=== PATIENT | male | born 1990 | race Caucasian/White ===

== ENCOUNTER 2019-04-04 22:42 | Emergency (ER) | payer OTHER ==
[~2019-04-04] VITALS: Ht 182.9 cm; Wt 93.0 kg
[~2019-04-04 22:42] MED LIST: HUMALOG100 UNIT/2
[2019-04-04 23:20] LABS: ABSOLUTE EOSINOPHILS 0.1 thou/uL (0.0-0.7); ABSOLUTE LYMPHOCYTES 2.1 thou/uL (0.8-5.3); ABSOLUTE MONOCYTES 0.7 thou/uL (0.0-1.2); ABSOLUTE NEUTROPHILS 5.8 thou/uL (1.6-8.1); BASOPHILS 0.4 %; HEMATOCRIT 44.1 % (42.0-52.0); HEMOGLOBIN 14.9 gm/dL (14.0-18.0); LYMPHOCYTES 23.9 %; MCH 30.8 pg (26.0-34.0); MCHC 33.7 g/dL (28.0-37.0); MCV 91.3 fL (80.0-100.0); MONOCYTES 8.3 %; MPV 8.3 fl. (7.2-11.1); NUCLEATED RBCS 0 /100WBC; PLATELET COUNT* 278 thou/uL (150-400); POLYS 66.4 %; RBC 4.83 mil/uL (4.50-6.00); RDW-CV 13.4 % (10.5-14.5); WBC 8.7 thou/uL (4.0-11.0)
[2019-04-04 23:39] LABS: CALCIUM 9.7 mg/dL (8.5-10.1); CREATININE 0.9 mg/dL (0.6-1.3); POTASSIUM 4.1 mmol/L (3.5-5.1)
[2019-04-04 23:44] LABS: TOTAL BILIRUBIN 0.5 mg/dL (<0.1-1.0); TOTAL PROTEIN 7.2 g/dL (6.4-8.2)
[2019-04-05 00:09] LABS: URINE BILIRUBIN NEGATIVE (Negative); URINE BLOOD NEGATIVE (Negative); URINE CLARITY CLEAR; URINE COLOR YELLOW; URINE GLUCOSE-RANDOM NEGATIVE (Negative); URINE KETONES NEGATIVE (Negative); URINE LEUKOCYTES-REFLEX NEGATIVE (Negative); URINE NITRITE-REFLEX NEGATIVE (Negative); URINE PROTEIN NEGATIVE (Negative); URINE SPECIFIC GRAVITY 1.015 (1.005-1.030); URINE UROBILINOGEN 0.2 E.U./dl (0.2-1.0)
[2019-04-05] MEDS ORDERED: TRAZODONE HCL50 MG PO (00:35)
[2019-04-05 01:12] VITALS: BP 132/74
--- NOTE | 2019-04-05 14:48 | EKG ---
[place] [address] ELECTROCARDIOGRAM REPORT Name: IRENEJACI BEE Room: [facility] Edgardo#: [id number] Admission: 04/04/19 Attend Phys: Discharge: 04/05/19 Date of : [birth year] Report #: [id number] THIS REPORT FOR: //name// [facility] ED Test Date: 2019-04-04 Test Time: 22:48:21 Pat Name: JACI BONILLA Department: Room: Gender: M [employer] Operator: LÓPEZ : 1990 Requested By: Chetna Herbert Order Number: [id number] Chaya MD: Mciah Cespedes Measurements Intervals [place] Rate: 115 P: 72 WV: 134 QRS: 53 QRSD: 87 T: 7 QT: 309 QTc: 428 Interpretive Statements Sinus tachycardia Probable left atrial enlargement Baseline wander in lead(s) V1 No previous ECG available for comparison Electronically Signed On 04-05-2019 14:48:42 CDT by Micah Cespedes [email or web address] <ELECTRONICALLY SIGNED> By: Micah Cespedes MD, [facility] 04/05/19 1448 [id number] Micah Cespedes MD, FACC /EPI
== END 2019-04-05 01:12 | disposition home or self-care (01) ==
LOC: M.ERS 22:42
PROVIDERS: Emergency Medicine
DX: F41.9 Anxiety disorder, unspecified (principal); E11.9 Type 2 diabetes mellitus without complications; F17.210 Nicotine dependence, cigarettes, uncomplicated; Z79.4 Long term (current) use of insulin

== ENCOUNTER → 2019-09-23 | Outpatient (CLI) | payer OTHER ==
[~2019-09-23] MED LIST changes: +TRAZODONE HCL50 MG PO
== END ==
LOC: M.ULTRA 12:56
DX: R22.41 Localized swelling, mass and lump, right lower limb (principal); M79.89 Other specified soft tissue disorders